=== PATIENT | male | born 1975 | race Two or more races ===

== ENCOUNTER 2023-11-22 13:17 | Emergency (ER) | payer SELFPAY ==
[2023-11-22 13:34] VITALS: TEMP 97.6
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
--- NOTE | 2023-11-22 16:24 | XR ---
EXAMINATION TYPE: XR abdomen 1V DATE OF EXAM: 11/22/2023 4:14 PM CLINICAL INDICATION: Male, 48 years old with history of peg o gram; [facility] COMPARISON: None. TECHNIQUE: One radiographic view of the abdomen was obtained. FINDINGS: The PEG tube appears in appropriate position. Bowel gas pattern is nonspecific without dila rosanne loops of small or large bowel. . Fecal material and gas are demonstrated throughout the colon and rectum. There is no evidence for organomegaly or pneumoperitoneum. The osseous structures are intact. No ab normal calcifications are present. IMPRESSION: PEG tube in appropriate position. [facility] Maddison Nunez, , 11/22/2023 4:22 PM
[2023-11-22 16:30] VITALS: BP 124/78; PULSE 74; RESP 18
== END 2023-11-22 16:30 | disposition home or self-care (01) ==
LOC: EC 13:17
DX: K94.23 Gastrostomy malfunction (principal)
CPT/HCPCS: 74018; 99284